=== PATIENT | female | born 1945 | race Caucasian/White ===

== ENCOUNTER 2018-06-23 12:56 | Observation (INO) ==
[2018-06-23] MEDS ORDERED: ASPIRIN 325 MG TABLET PO STA (13:54)
[2018-06-23] MEDS ORDERED: NITROGLYCERIN SL 0.4 MG TABLET SL PRN (13:54)
[2018-06-23 14:03] LABS: Basophils # 0.1 10*3/uL (0.0-0.2); Basophils % 0.8 % (0.0-0.8); Eosinophils # 0.2 10*3/uL (0.0-0.87); Eosinophils % 2.1 % (0.00-10.9); Hematocrit 39.6 VOL% (35.7-47.0); Immature Granulocytes % 0.3 %; Immature Granulocytes Absolute 0.03 #; Lymphocytes % 32.2 % (21.3-54.2); Mean Corpuscular HGB Conc 32.8 GM/DL (32-36); Mean Corpuscular Hemoglobin 29 PG (27-34); Mean Platelet Volume 10.9 FL (9.6-12.0); Monocytes # 0.7 10*3/uL (0.11-0.8); Neutrophils # 5.3 10*3/uL (1.4-7.4); Neutrophils % 57.6 % (38.7-73.9); Platelet Count 295 T/CUMM (130-400); Red Blood Count 4.55 MC/CUMM (3.8-5.5); Red Cell Distribution Width 13.4 % (9.3-17.3); White Blood Count 9.2 T/CUMM (4-12)
[2018-06-23 14:20] LABS: Alanine Aminotransferase 35 U/L (13-56); Albumin 3.3 G/DL (3.4-5.0); Alkaline Phosphatase 81 U/L (45-117); Aspartate Amino Transferase 29 U/L (0-37); Bilirubin,Total < 0.39 MG/DL (0.2-1.0); Blood Urea Nitrogen 22 MG/DL (7-18); Calcium 9.3 MG/DL (8.5-10.1); Glucose 154 MG/DL (74-106); Osmolality,Calculated 284.4 MOS/KG (273-304); Potassium 4.3 MMOL/L (3.5-5.1); Sodium 140 MMOL/L (136-145); Total Protein 6.3 G/DL (6.4-8.3)
[2018-06-23 14:59] LABS: INR 0.9; PT Patient Result 9.8 SECS; Partial Thromboplastin Time 24.8 SECS (0-40)
[2018-06-23] MEDS ORDERED: SODIUM CHLORIDE 0.9% 1,000 ML IV STA (15:23)
[2018-06-23] MEDS ORDERED: ACETAMINOPHEN 500 MG TABLET PO STA (16:52)
[2018-06-23] MEDS ORDERED: ONDANSETRON 4 MG/2 ML VIAL IV PRN (17:51)
[2018-06-23] MEDS ORDERED: SODIUM CHLORIDE 0.9% 1,000 ML IV SCH (17:51)
[2018-06-23] MEDS ORDERED: ACETAMINOPHEN 325 MG TABLET PO PRN (17:51)
[2018-06-23] MEDS: CARVEDILOL 3.125 MG TABLET PO SCH (18:32)
[2018-06-23] MEDS ORDERED: traMADol 50 MG TABLET PO ONE (19:30)
[2018-06-23] MEDS ORDERED: DEXTROSE 50% 25 GM/50 ML VIAL IV PRN (21:15)
[2018-06-23] MEDS ORDERED: GLUCAGON 1 MG VIAL IM PRN (21:15)
[2018-06-23 21:24] LABS: Troponin I < 0.015 NG/ML (0.00-0.045)
[2018-06-23] MEDS ORDERED: cloNIDine 0.1 MG TABLET PO SCH (21:30)
[2018-06-23] MEDS ORDERED: MAGNESIUM SULF RIDER 2 GM in PREMIX 1 EACH IV ONE (21:30)
[2018-06-23] MEDS ORDERED: CARVEDILOL 3.125 MG TABLET PO SCH (21:30)
[2018-06-23] MEDS: INSULIN REGULAR 100 UNIT/ML SUBCUT SCH (21:53)
[2018-06-23] MEDS: CITALOPRAM 40 MG TABLET PO SCH (21:54)
[2018-06-23] MEDS: INSULIN GLARGINE 100 UNIT/ML SUBCUT SCH (21:54)
[2018-06-23] MEDS: POTASSIUM CHLORIDE 20 MEQ TABLET PO SCH (21:55)
[2018-06-23] MEDS: GABAPENTIN 600 MG TABLET PO SCH (21:55)
[2018-06-23] MEDS: KETOROLAC 15 MG/1 ML VIAL IV SCH (21:56)
[2018-06-23] MEDS: SODIUM CHLORIDE 0.45% 1,000 ML IV SCH (22:12)
[2018-06-24] MEDS: KETOROLAC 15 MG/1 ML VIAL IV SCH ×3 (05:00→21:07)
[2018-06-24 06:34] LABS: Basophils # 0.1 10*3/uL (0.0-0.2); Basophils % 0.9 % (0.0-0.8); Eosinophils # 0.3 10*3/uL (0.0-0.87); Eosinophils % 2.9 % (0.00-10.9); Hematocrit 36.8 VOL% (35.7-47.0); Immature Granulocytes % 0.5 %; Immature Granulocytes Absolute 0.04 #; Lymphocytes % 35.5 % (21.3-54.2); Mean Corpuscular HGB Conc 32.6 GM/DL (32-36); Mean Corpuscular Hemoglobin 28 PG (27-34); Mean Corpuscular Volume 86.2 FL (87-102); Mean Platelet Volume 10.8 FL (9.6-12.0); Monocytes # 0.7 10*3/uL (0.11-0.8); Monocytes % 8.3 % (1.7-12.7); Neutrophils # 4.4 10*3/uL (1.4-7.4); Neutrophils % 51.9 % (38.7-73.9); Platelet Count 260 T/CUMM (130-400); Red Blood Count 4.27 MC/CUMM (3.8-5.5); Red Cell Distribution Width 13.3 % (9.3-17.3); White Blood Count 8.5 T/CUMM (4-12)
[2018-06-24 07:02] LABS: Calcium 8.6 MG/DL (8.5-10.1); Osmolality,Calculated 282.4 MOS/KG (273-304); Potassium 4.1 MMOL/L (3.5-5.1)
[2018-06-24 07:06] LABS: Troponin I < 0.015 NG/ML (0.00-0.045)
[2018-06-24] MEDS: INSULIN REGULAR 100 UNIT/ML SUBCUT SCH ×4 (09:26→20:44)
[2018-06-24] MEDS: FUROSEMIDE 40 MG TABLET PO SCH (09:27)
[2018-06-24] MEDS: busPIRone 10 MG TABLET PO SCH (09:27)
[2018-06-24] MEDS: PANTOPRAZOLE 40 MG TABLET PO SCH (09:28)
[2018-06-24] MEDS: POTASSIUM CHLORIDE 20 MEQ TABLET PO SCH ×2 (09:28→20:44)
[2018-06-24] MEDS: GABAPENTIN 600 MG TABLET PO SCH ×3 (09:28→20:44)
[2018-06-24] MEDS: LOSARTAN 25 MG TABLET PO SCH (09:29)
[2018-06-24] MEDS: CARVEDILOL 3.125 MG TABLET PO SCH ×2 (09:29→16:37)
[2018-06-24] MEDS: INSULIN GLARGINE 100 UNIT/ML SUBCUT SCH ×2 (09:29→20:43)
[2018-06-24] MEDS: ASPIRIN EC 325 MG TABLET PO SCH (09:29)
[2018-06-24] MEDS: SODIUM CHLORIDE 0.45% 1,000 ML IV SCH (11:50)
[2018-06-24] MEDS: ALBUTEROL/IPRATROPIUM 3 ML NEB RESP TX SCH (19:09)
[2018-06-24] MEDS: cloNIDine 0.1 MG TABLET PO SCH (20:44)
[2018-06-24] MEDS: CITALOPRAM 40 MG TABLET PO SCH (20:44)
[2018-06-24] MEDS: rOPINIRole 0.25 MG TABLET PO SCH (20:44)
[2018-06-25] MEDS: ALBUTEROL/IPRATROPIUM 3 ML NEB RESP TX SCH ×4 (02:19→20:25)
[2018-06-25 05:34] LABS: Calcium 8.3 MG/DL (8.5-10.1); Osmolality,Calculated 288.3 MOS/KG (273-304); Potassium 4.3 MMOL/L (3.5-5.1)
[2018-06-25] MEDS: SODIUM CHLORIDE 0.45% 1,000 ML IV SCH ×3 (05:56→16:17)
[2018-06-25] MEDS: KETOROLAC 15 MG/1 ML VIAL IV SCH ×3 (06:02→21:32)
[2018-06-25] MEDS: INSULIN GLARGINE 100 UNIT/ML SUBCUT SCH ×2 (08:00→21:34)
[2018-06-25] MEDS: INSULIN REGULAR 100 UNIT/ML SUBCUT SCH ×4 (08:26→21:33)
[2018-06-25] MEDS: GABAPENTIN 600 MG TABLET PO SCH ×3 (09:00→21:31)
[2018-06-25] MEDS: LOSARTAN 25 MG TABLET PO SCH (09:25)
[2018-06-25] MEDS: CARVEDILOL 3.125 MG TABLET PO SCH ×2 (09:25→16:33)
[2018-06-25] MEDS: cloNIDine 0.1 MG TABLET PO SCH ×2 (09:25→21:32)
[2018-06-25] MEDS ORDERED: methylPREDNISolone ACETATE 80 MG/1 ML VIAL ONE (11:22)
[2018-06-25] MEDS ORDERED: DEXAMETHASONE 10 MG/1 ML VIAL ONE (11:22)
[2018-06-25] MEDS ORDERED: TRIAMCINOLONE ACETONIDE 40 MG/1 ML VIAL ONE (11:22)
[2018-06-25] MEDS ORDERED: PROPOFOL 200 MG/20 ML VIAL IV ONE (12:36)
[2018-06-25] MEDS ORDERED: MIDAZOLAM 2 MG/2 ML VIAL ONE (12:36)
[2018-06-25] MEDS ORDERED: fentaNYL 100 MCG/2 ML VIAL ONE (12:36)
[2018-06-25] MEDS: POTASSIUM CHLORIDE 20 MEQ TABLET PO SCH ×2 (14:14→21:32)
[2018-06-25] MEDS: FUROSEMIDE 40 MG TABLET PO SCH (14:14)
[2018-06-25] MEDS: PANTOPRAZOLE 40 MG TABLET PO SCH (14:15)
[2018-06-25] MEDS: ASPIRIN EC 325 MG TABLET PO SCH (14:15)
[2018-06-25] MEDS: busPIRone 10 MG TABLET PO SCH (14:15)
[2018-06-25] MEDS: rOPINIRole 0.25 MG TABLET PO SCH (21:31)
[2018-06-25] MEDS: CITALOPRAM 40 MG TABLET PO SCH (21:31)
[2018-06-25] MEDS ORDERED: FLUTICASONE 50 MCG NASAL SPRAY 16 GM BOTTLE BOTH NARES PRN (22:54)
[2018-06-25] MEDS ORDERED: INSULIN REGULAR 100 UNIT/ML SUBCUT ONE (23:45)
[2018-06-26] MEDS: ALBUTEROL/IPRATROPIUM 3 ML NEB RESP TX SCH ×2 (00:59→07:21)
[2018-06-26] MEDS: SODIUM CHLORIDE 0.45% 1,000 ML IV SCH (02:50)
[2018-06-26] MEDS: KETOROLAC 15 MG/1 ML VIAL IV SCH (05:25)
[2018-06-26 08:24] VITALS: BP 134/67
[2018-06-26] MEDS: GABAPENTIN 600 MG TABLET PO SCH (08:59)
[2018-06-26] MEDS: PANTOPRAZOLE 40 MG TABLET PO SCH (08:59)
[2018-06-26] MEDS: CARVEDILOL 3.125 MG TABLET PO SCH (08:59)
[2018-06-26] MEDS: FUROSEMIDE 40 MG TABLET PO SCH (08:59)
[2018-06-26] MEDS: LOSARTAN 25 MG TABLET PO SCH (08:59)
[2018-06-26] MEDS: POTASSIUM CHLORIDE 20 MEQ TABLET PO SCH (08:59)
[2018-06-26] MEDS: INSULIN GLARGINE 100 UNIT/ML SUBCUT SCH (09:00)
[2018-06-26] MEDS: ASPIRIN EC 325 MG TABLET PO SCH (09:00)
[2018-06-26] MEDS: cloNIDine 0.1 MG TABLET PO SCH (09:00)
[2018-06-26] MEDS: INSULIN REGULAR 100 UNIT/ML SUBCUT SCH (09:01)
[2018-06-26] MEDS: busPIRone 10 MG TABLET PO SCH (09:10)
== END 2018-06-26 11:39 | disposition home or self-care (01) ==
LOC: N.ED 12:56 → N.EDINP 12:56 → N.TELEN 17:45
PROVIDERS: ADMIT Internal Medicine; ATTEND Internal Medicine

== ENCOUNTER 2019-12-08 14:30 | Observation (INO) ==
[2019-12-08 15:54] LABS: Apearance,Urine CLEAR (Clear); Bilirubin,Urine Negative (Negative); Blood, Urine Small mg/dL (Negative); Glucose,Urine (UA) >=500 mg/dL (Negative); Ketones,Urine 5 mg/dL (Negative); Nitrite,Urine Negative (Negative); Protein,Urine Negative; RBC,Urine 4 /HPF (0-4); Squamous Epithelial Cell,Urine Occasional /HPF (0-10); Urine Color Yellow (Yellow); Urine Specific Gravity 1.016 (1.001-1.035); Urine Urobilinogen < 2.0 EU/DL (0.2-1.0); WBC,Urine <1 /HPF (0-6)
[2019-12-08 15:58] LABS: Basophils # 0.1 10*3/uL (0.0-0.2); Basophils % 0.4 % (0.0-0.8); Eosinophils # 0.1 10*3/uL (0.0-0.87); Eosinophils % 0.6 % (0.00-10.9); Hematocrit 41.3 VOL% (35.7-47.0); Immature Granulocytes % 0.3 %; Immature Granulocytes Absolute 0.04 #; Lymphocytes # 2.1 10*3/uL (1.4-4.0); Lymphocytes % 17.9 % (21.3-54.2); Mean Corpuscular HGB Conc 31.5 GM/DL (32-36); Mean Corpuscular Volume 88.1 FL (87-102); Mean Platelet Volume 10.7 FL (9.6-12.0); Monocytes % 7.2 % (1.7-12.7); Neutrophils % 73.6 % (38.7-73.9); Platelet Count 284 T/CUMM (130-400); Red Blood Count 4.69 MC/CUMM (3.8-5.5); Red Cell Distribution Width 13.3 % (9.3-17.3); White Blood Count 11.7 T/CUMM (4-12)
[2019-12-08 16:10] LABS: PT Patient Result 10.4 SECS (9.8-11.9)
[2019-12-08 16:17] LABS: Barbiturates Screen,Urine Negative (Negative); Benzodiazepines Screen,Urine Negative (Negative); Cannabinoid Screen,Urine Negative (Negative); Opiate Screen,Urine Negative (Negative); Phencyclidine Screen,Urine Negative (Negative)
[2019-12-08 16:37] LABS: Albumin 3.1 G/DL (3.4-5.0); Bilirubin,Total 0.5 MG/DL (0.2-1.0); Calcium 9.2 MG/DL (8.5-10.1); Osmolality,Calculated 286.1 MOS/KG (273-304); Thyroid Stimulating Hormone 1.57 uIU/ml (0.358-3.74); Total Protein 7.1 G/DL (6.4-8.3)
[2019-12-08] MEDS ORDERED: cloNIDine 0.1 MG TABLET PO ONE (18:55)
[2019-12-08] MEDS ORDERED: hydrALAZINE 20 MG/1 ML VIAL IV PRN (18:55)
[2019-12-08] MEDS ORDERED: cloNIDine 0.1 MG TABLET ONE (18:57)
[2019-12-08] MEDS ORDERED: ONDANSETRON 4 MG/2 ML VIAL IV PRN (19:38)
[2019-12-08] MEDS ORDERED: GLUCAGON 1 MG VIAL IM PRN (19:38)
[2019-12-08] MEDS ORDERED: ACETAMINOPHEN 325 MG TABLET PO PRN (19:38)
[2019-12-08] MEDS ORDERED: DEXTROSE 50% 25 GM/50 ML SYRINGE IV PRN (19:38)
[2019-12-08] MEDS: SODIUM CHLORIDE 0.9% 1,000 ML IV SCH (21:53)
[2019-12-08] MEDS: DOCUSATE SODIUM 100 MG CAPSULE PO SCH (21:55)
[2019-12-09] MEDS: INSULIN REGULAR 100 UNIT/ML SUBCUT SCH ×3 (01:05→12:47)
[2019-12-09] MEDS: SODIUM CHLORIDE 0.9% 1,000 ML IV SCH (06:00)
[2019-12-09] MEDS ORDERED: POLYETHYLENE GLYCOL POWDER 17 GM PACK PO PRN (08:11)
[2019-12-09] MEDS ORDERED: ALBUTEROL 2.5 MG/3 ML NEB RESP TX PRN (08:11)
[2019-12-09] MEDS ORDERED: ALPRAZolam 0.5 MG TABLET PO ONE (08:19)
[2019-12-09] MEDS ORDERED: ERGOCALCIFEROL 50,000 UNIT CAPSULE PO SCH (08:30)
[2019-12-09] MEDS ORDERED: FUROSEMIDE 20 MG/2 ML VIAL IV ONE (08:43)
[2019-12-09] MEDS ORDERED: LORazepam 2 MG/1 ML VIAL IV ONE ×2 (08:50→16:30)
[2019-12-09] MEDS ORDERED: PANTOPRAZOLE 40 MG TABLET PO SCH (09:00)
[2019-12-09] MEDS ORDERED: busPIRone 5 MG TABLET PO SCH (09:00)
[2019-12-09] MEDS ORDERED: GABAPENTIN 400 MG CAPSULE PO SCH (09:00)
[2019-12-09] MEDS ORDERED: FUROSEMIDE 40 MG TABLET PO SCH ×2 (09:00→09:07)
[2019-12-09] MEDS: busPIRone 5 MG TABLET PO SCH ×3 (09:40→21:46)
[2019-12-09] MEDS: FLUTICASONE 50 MCG NASAL SPRAY 16 GM BOTTLE BOTH NARES SCH (09:41)
[2019-12-09] MEDS: CITALOPRAM 40 MG TABLET PO SCH (09:41)
[2019-12-09] MEDS: BENZONATATE 100 MG CAPSULE PO PRN ×2 (09:41→21:44)
[2019-12-09] MEDS: MONTELUKAST 10 MG TABLET PO SCH (09:41)
[2019-12-09] MEDS: DOCUSATE SODIUM 100 MG CAPSULE PO SCH ×2 (09:42→21:46)
[2019-12-09] MEDS: carvediloL 12.5 MG TABLET PO SCH ×2 (09:42→21:46)
[2019-12-09] MEDS: PANTOPRAZOLE 40 MG TABLET PO SCH (09:43)
[2019-12-09] MEDS: LOSARTAN 25 MG TABLET PO SCH (09:47)
[2019-12-09] MEDS: INSULIN GLARGINE 100 UNIT/ML SUBCUT SCH (09:50)
[2019-12-09] MEDS: INSULIN LISPRO 100 UNIT/ML SUBCUT SCH ×3 (12:16→21:43)
[2019-12-09] MEDS: FUROSEMIDE 20 MG TABLET PO SCH (12:47)
[2019-12-09] MEDS: ENOXAPARIN 40 MG/0.4 ML SYRINGE SUBCUT SCH (12:47)
[2019-12-09] MEDS: MIRTAZAPINE 15 MG TABLET PO SCH (21:44)
[2019-12-09] MEDS: GABAPENTIN 300 MG CAPSULE PO SCH (21:44)
[2019-12-10] MEDS: MONTELUKAST 10 MG TABLET PO SCH (08:17)
[2019-12-10] MEDS: CITALOPRAM 40 MG TABLET PO SCH (08:17)
[2019-12-10] MEDS: DOCUSATE SODIUM 100 MG CAPSULE PO SCH ×2 (08:17→22:56)
[2019-12-10] MEDS: busPIRone 5 MG TABLET PO SCH ×3 (08:17→22:55)
[2019-12-10] MEDS: PANTOPRAZOLE 40 MG TABLET PO SCH (08:17)
[2019-12-10] MEDS: carvediloL 12.5 MG TABLET PO SCH ×2 (08:18→22:56)
[2019-12-10] MEDS: FUROSEMIDE 20 MG TABLET PO SCH (08:18)
[2019-12-10] MEDS: INSULIN LISPRO 100 UNIT/ML SUBCUT SCH ×4 (08:18→22:55)
[2019-12-10] MEDS: GABAPENTIN 300 MG CAPSULE PO SCH ×2 (08:18→22:56)
[2019-12-10] MEDS: LOSARTAN 25 MG TABLET PO SCH (08:18)
[2019-12-10] MEDS: INSULIN GLARGINE 100 UNIT/ML SUBCUT SCH (08:19)
[2019-12-10] MEDS: FLUTICASONE 50 MCG NASAL SPRAY 16 GM BOTTLE BOTH NARES SCH (08:20)
[2019-12-10] MEDS: ENOXAPARIN 40 MG/0.4 ML SYRINGE SUBCUT SCH (10:21)
[2019-12-10] MEDS: BENZONATATE 100 MG CAPSULE PO PRN (22:56)
[2019-12-10] MEDS: MIRTAZAPINE 15 MG TABLET PO SCH (22:56)
[2019-12-11] MEDS: INSULIN LISPRO 100 UNIT/ML SUBCUT SCH ×2 (09:46→12:12)
[2019-12-11] MEDS: PANTOPRAZOLE 40 MG TABLET PO SCH (09:47)
[2019-12-11] MEDS: DOCUSATE SODIUM 100 MG CAPSULE PO SCH (09:47)
[2019-12-11] MEDS: CITALOPRAM 40 MG TABLET PO SCH (09:47)
[2019-12-11] MEDS: GABAPENTIN 300 MG CAPSULE PO SCH (09:47)
[2019-12-11] MEDS: carvediloL 12.5 MG TABLET PO SCH (09:47)
[2019-12-11] MEDS: MONTELUKAST 10 MG TABLET PO SCH (09:48)
[2019-12-11] MEDS: busPIRone 5 MG TABLET PO SCH (09:48)
[2019-12-11] MEDS: FUROSEMIDE 20 MG TABLET PO SCH (09:48)
[2019-12-11] MEDS: LOSARTAN 25 MG TABLET PO SCH (09:48)
[2019-12-11] MEDS: FLUTICASONE 50 MCG NASAL SPRAY 16 GM BOTTLE BOTH NARES SCH (09:49)
[2019-12-11] MEDS: INSULIN GLARGINE 100 UNIT/ML SUBCUT SCH (09:59)
[2019-12-11] MEDS: ENOXAPARIN 40 MG/0.4 ML SYRINGE SUBCUT SCH (10:00)
[2019-12-11 12:50] VITALS: BP 126/47
== END 2019-12-11 13:38 | disposition home health service (06) ==
LOC: EDBD → EDUNIT# → N.ED 14:30 → N.EDINP 14:30 → N.3E 18:45
PROVIDERS: ADMIT Internal Medicine; ATTEND Internal Medicine

== ENCOUNTER 2022-09-05 21:23 | Inpatient (IN) ==
[2022-09-05 22:11] LABS: Basophils # 0.1 10*3/uL (0.0-0.2); Basophils % 0.7 % (0.0-0.8); Eosinophils # 0.5 10*3/uL (0.0-0.87); Eosinophils % 3.5 % (0.00-10.9); Hematocrit 38.2 VOL% (35.7-47.0); Hemoglobin 12.1 GM/DL (12.0-16.0); Immature Granulocytes % 0.3 %; Immature Granulocytes Absolute 0.04 #; Lymphocytes # 3.3 10*3/uL (1.4-4.0); Lymphocytes % 24.8 % (21.3-54.2); Mean Corpuscular HGB Conc 31.7 GM/DL (32-36); Mean Corpuscular Volume 85.8 FL (87-102); Mean Platelet Volume 10.2 FL (9.6-12.0); Monocytes # 0.7 10*3/uL (0.11-0.8); Monocytes % 5.1 % (1.7-12.7); Neutrophils % 65.6 % (38.7-73.9); Platelet Count 326 T/CUMM (130-400); Red Blood Count 4.45 MC/CUMM (3.8-5.5); Red Cell Distribution Width 13.5 % (9.3-17.3); White Blood Count 13.3 T/CUMM (4-12)
[2022-09-05 22:22] LABS: INR 0.9; PT Patient Result 10.2 SECS (10.1-12.1)
[2022-09-05 22:44] LABS: Alanine Aminotransferase 20 U/L (13-56); Albumin 3.3 G/DL (3.4-5.0); Alkaline Phosphatase 87 U/L (45-117); Aspartate Amino Transferase 17 U/L (0-37); Bilirubin,Total < 0.39 MG/DL (0.20-1.00); Blood Urea Nitrogen 21 MG/DL (7-18); Calcium 9.2 MG/DL (8.5-10.1); Carbon Dioxide 29 MMOL/L (21-32); Chloride 108 MMOL/L (98-107); Glucose 185 MG/DL (74-106); Potassium 4.4 MMOL/L (3.5-5.1); Sodium 143 MMOL/L (136-145); Total Protein 6.3 G/DL (6.4-8.2)
[2022-09-05] MEDS ORDERED: ASPIRIN 325 MG TABLET PO STA (22:58)
[2022-09-06] MEDS ORDERED: hydrALAZINE 20 MG/1 ML VIAL IV STA ×2 (01:01→01:13)
[2022-09-06] MEDS ORDERED: ONDANSETRON 4 MG/2 ML VIAL IV PRN (01:17)
[2022-09-06 01:31] LABS: Mucus,Urine Occasional /LPF (Occasional); RBC,Urine 2 /HPF (0-4); Squamous Epithelial Cell,Urine Occasional /HPF (0-10)
[2022-09-06 01:32] LABS: Bilirubin,Urine Negative (Negative); Blood, Urine Trace mg/dL (Negative); Glucose,Urine (UA) 500 mg/dL (Negative); Ketones,Urine Negative (Negative); Nitrite,Urine Negative (Negative); Protein,Urine Negative (Negative); Urine Appearance Clear (Clear); Urine Color Yellow (Yellow); Urine Urobilinogen 0.2 eU/dL (<2.0); Urine pH 6.5 (4.5-8.0)
[2022-09-06 02:31] LABS: Alanine Aminotransferase 17 U/L (13-56); Albumin 3.1 G/DL (3.4-5.0); Alkaline Phosphatase 83 U/L (45-117); Aspartate Amino Transferase 17 U/L (0-37); Bilirubin,Total < 0.39 MG/DL (0.20-1.00); Blood Urea Nitrogen 18 MG/DL (7-18); Calcium 8.6 MG/DL (8.5-10.1); Carbon Dioxide 30 MMOL/L (21-32); Chloride 109 MMOL/L (98-107); Glucose 172 MG/DL (74-106); Osmolality,Calculated 286.3 MOS/KG (273-304); Potassium 4.7 MMOL/L (3.5-5.1); Sodium 141 MMOL/L (136-145); Total Protein 6.3 G/DL (6.4-8.2)
[2022-09-06] MEDS: ACETAMINOPHEN 325 MG TABLET PO PRN ×2 (02:40→11:15)
[2022-09-06] MEDS ORDERED: hydrALAZINE 20 MG/1 ML VIAL IV ONE (02:42)
[2022-09-06 05:17] LABS: Basophils # 0.1 10*3/uL (0.0-0.2); Basophils % 0.7 % (0.0-0.8); Eosinophils # 0.6 10*3/uL (0.0-0.87); Hematocrit 37.1 VOL% (35.7-47.0); Immature Granulocytes % 0.4 %; Immature Granulocytes Absolute 0.06 #; Lymphocytes # 3.4 10*3/uL (1.4-4.0); Lymphocytes % 24.9 % (21.3-54.2); Mean Corpuscular HGB Conc 32.3 GM/DL (32-36); Mean Corpuscular Volume 84.1 FL (87-102); Mean Platelet Volume 10.5 FL (9.6-12.0); Monocytes # 0.9 10*3/uL (0.11-0.8); Monocytes % 6.2 % (1.7-12.7); Neutrophils % 63.8 % (38.7-73.9); Platelet Count 328 T/CUMM (130-400); Red Blood Count 4.41 MC/CUMM (3.8-5.5); Red Cell Distribution Width 13.6 % (9.3-17.3); White Blood Count 13.7 T/CUMM (4-12)
[2022-09-06] MEDS: DOCUSATE SODIUM 100 MG CAPSULE PO SCH ×2 (08:37→20:35)
[2022-09-06] MEDS: PANTOPRAZOLE 40 MG TABLET PO SCH (08:37)
[2022-09-06] MEDS ORDERED: ENOXAPARIN 40 MG/0.4 ML SYRINGE SUBCUT SCH (09:00)
[2022-09-06] MEDS ORDERED: FUROSEMIDE 40 MG TABLET PO PRN (09:21)
[2022-09-06 09:50] LABS: Risk Ratio 1.94; VLDL Cholesterol 25.8 MG/DL
[2022-09-06] MEDS ORDERED: DEXTROSE 10% 250 ML BAG IV PRN (09:51)
[2022-09-06] MEDS ORDERED: GLUCAGON 1 MG VIAL IM PRN (09:51)
[2022-09-06] MEDS ORDERED: ALBUTEROL 2.5 MG/3 ML NEB RESP TX PRN (10:20)
[2022-09-06] MEDS: ASPIRIN 325 MG TABLET PO SCH (11:17)
[2022-09-06] MEDS: INSULIN LISPRO 100 UNIT/ML SUBCUT SCH ×3 (12:57→20:36)
[2022-09-06] MEDS: HEPARIN DRIP 25,000 UNITS/500 ML PREMIX IV SCH (13:26)
[2022-09-06] MEDS: methylPREDNISolone SOD SUC INJ 1,000 MG in SODIUM CHLORIDE 0.9% 100 ML IV SCH (15:30)
[2022-09-06] MEDS: GABAPENTIN 600 MG TABLET PO SCH ×2 (15:43→20:36)
[2022-09-06] MEDS: carvediloL 25 MG TABLET PO SCH (16:42)
[2022-09-06] MEDS: DULoxetine 30 MG CAPSULE PO SCH (20:35)
[2022-09-06] MEDS: LOSARTAN 50 MG TABLET PO SCH (20:35)
[2022-09-06] MEDS: AMOXICILLIN/CLAV 875 MG TABLET PO SCH (20:35)
[2022-09-06] MEDS: busPIRone 15 MG TABLET PO SCH (20:35)
[2022-09-06] MEDS: MIRTAZAPINE 30 MG TABLET PO SCH (20:36)
[2022-09-06] MEDS: CYCLOBENZAPRINE 10 MG TABLET PO PRN (20:39)
[2022-09-07 05:39] LABS: Basophils % 0.2 % (0.0-0.8); Hematocrit 41.4 VOL% (35.7-47.0); Hemoglobin 13.6 GM/DL (12.0-16.0); Immature Granulocytes % 0.7 %; Lymphocytes # 1.7 10*3/uL (1.4-4.0); Lymphocytes % 12.2 % (21.3-54.2); Mean Corpuscular HGB Conc 32.9 GM/DL (32-36); Mean Corpuscular Volume 82.1 FL (87-102); Mean Platelet Volume 10.5 FL (9.6-12.0); Monocytes # 0.1 10*3/uL (0.11-0.8); Monocytes % 0.4 % (1.7-12.7); Neutrophils % 86.5 % (38.7-73.9); Platelet Count 338 T/CUMM (130-400); Red Blood Count 5.04 MC/CUMM (3.8-5.5); Red Cell Distribution Width 13.4 % (9.3-17.3); White Blood Count 14.3 T/CUMM (4-12)
[2022-09-07 06:06] LABS: Calcium 9.5 MG/DL (8.5-10.1); Osmolality,Calculated 290.4 MOS/KG (273-304)
[2022-09-07] MEDS: INSULIN LISPRO 100 UNIT/ML SUBCUT SCH ×4 (08:10→21:17)
[2022-09-07] MEDS: HEPARIN DRIP 25,000 UNITS/500 ML PREMIX IV SCH ×2 (08:17→10:42)
[2022-09-07] MEDS: carvediloL 25 MG TABLET PO SCH ×3 (08:17→16:06)
[2022-09-07] MEDS: CHOLECALCIFEROL 1,000 UNIT TABLET PO SCH (08:17)
[2022-09-07] MEDS: busPIRone 15 MG TABLET PO SCH ×2 (08:18→21:16)
[2022-09-07] MEDS: DOCUSATE SODIUM 100 MG CAPSULE PO SCH ×2 (08:18→21:16)
[2022-09-07] MEDS: PANTOPRAZOLE 40 MG TABLET PO SCH (08:18)
[2022-09-07] MEDS: GABAPENTIN 600 MG TABLET PO SCH ×3 (08:18→21:16)
[2022-09-07] MEDS: ASPIRIN 325 MG TABLET PO SCH (08:18)
[2022-09-07] MEDS: LOSARTAN 50 MG TABLET PO SCH ×2 (08:18→21:16)
[2022-09-07] MEDS: DULoxetine 30 MG CAPSULE PO SCH ×2 (08:18→21:16)
[2022-09-07] MEDS: traMADol 50 MG TABLET PO PRN ×2 (08:19→08:34)
[2022-09-07] MEDS: TRAMADOL 100 MG PO SCH (08:21)
[2022-09-07] MEDS: methylPREDNISolone SOD SUC INJ 1,000 MG in SODIUM CHLORIDE 0.9% 100 ML IV SCH ×2 (08:24→14:01)
[2022-09-07] MEDS: AMOXICILLIN/CLAV 875 MG TABLET PO SCH ×2 (08:25→21:16)
[2022-09-07] MEDS ORDERED: PANTOPRAZOLE 40 MG TABLET PO SCH (09:00)
[2022-09-07] MEDS ORDERED: INSULIN GLARGINE 100 UNIT/ML SUBCUT SCH (09:00)
[2022-09-07] MEDS: FUROSEMIDE 40 MG TABLET PO SCH (10:43)
[2022-09-07] MEDS: MIRTAZAPINE 30 MG TABLET PO SCH (21:16)
[2022-09-07] MEDS: CYCLOBENZAPRINE 10 MG TABLET PO PRN (21:16)
[2022-09-08 05:32] LABS: Basophils % 0.1 % (0.0-0.8); Hematocrit 35.6 VOL% (35.7-47.0); Hemoglobin 11.8 GM/DL (12.0-16.0); Immature Granulocytes % 0.9 %; Lymphocytes # 1.6 10*3/uL (1.4-4.0); Lymphocytes % 7.2 % (21.3-54.2); Mean Corpuscular HGB Conc 33.1 GM/DL (32-36); Mean Corpuscular Volume 83.4 FL (87-102); Mean Platelet Volume 11.1 FL (9.6-12.0); Monocytes # 0.5 10*3/uL (0.11-0.8); Neutrophils % 89.8 % (38.7-73.9); Platelet Count 304 T/CUMM (130-400); Red Blood Count 4.27 MC/CUMM (3.8-5.5); Red Cell Distribution Width 13.9 % (9.3-17.3); White Blood Count 22.7 T/CUMM (4-12)
[2022-09-08 05:57] LABS: Band Neutrophils 1 % (0-10); Lymphocytes 8 % (20-55); Total Cells Counted 100
[2022-09-08 05:58] LABS: Microcytosis 1+; Ovalocytes Slight; Platelet Estimate Normal
[2022-09-08 05:59] LABS: Calcium 8.9 MG/DL (8.5-10.1); Osmolality,Calculated 299.5 MOS/KG (273-304); Potassium 3.8 MMOL/L (3.5-5.1)
[2022-09-08] MEDS: carvediloL 25 MG TABLET PO SCH ×2 (09:04→17:45)
[2022-09-08] MEDS: busPIRone 15 MG TABLET PO SCH ×2 (09:04→21:11)
[2022-09-08] MEDS: traMADol 50 MG TABLET PO PRN (09:04)
[2022-09-08] MEDS: DULoxetine 30 MG CAPSULE PO SCH ×2 (09:04→21:11)
[2022-09-08] MEDS: GABAPENTIN 600 MG TABLET PO SCH ×3 (09:05→21:11)
[2022-09-08] MEDS: DOCUSATE SODIUM 100 MG CAPSULE PO SCH ×2 (09:05→21:12)
[2022-09-08] MEDS: FUROSEMIDE 40 MG TABLET PO SCH (09:05)
[2022-09-08] MEDS: PANTOPRAZOLE 40 MG TABLET PO SCH (09:06)
[2022-09-08] MEDS: LOSARTAN 50 MG TABLET PO SCH ×2 (09:06→21:12)
[2022-09-08] MEDS: CHOLECALCIFEROL 1,000 UNIT TABLET PO SCH (09:07)
[2022-09-08] MEDS: INSULIN LISPRO 100 UNIT/ML SUBCUT SCH ×4 (09:07→21:12)
[2022-09-08] MEDS: TRAMADOL 100 MG PO SCH (09:08)
[2022-09-08] MEDS: INSULIN GLARGINE 100 UNIT/ML SUBCUT SCH (12:25)
[2022-09-08] MEDS: methylPREDNISolone SOD SUC INJ 1,000 MG in SODIUM CHLORIDE 0.9% 100 ML IV SCH (12:25)
[2022-09-08 13:05] LABS: Hepatitis B Surface Ag Result Non-Reactive (NonReactive)
[2022-09-08 13:34] LABS: Hepatitis C Virus Ab Quant < 0.02 Index; Hepatitis C Virus Ab Result Non-Reactive (NonReactive)
[2022-09-08] MEDS: MIRTAZAPINE 30 MG TABLET PO SCH (21:12)
[2022-09-08] MEDS ORDERED: tiZANidine 4 MG TABLET PO PRN (21:23)
[2022-09-09 05:09] LABS: Hematocrit 37.5 VOL% (35.7-47.0); Immature Granulocytes % 1.3 %; Immature Granulocytes Absolute 0.27 #; Lymphocytes # 1.4 10*3/uL (1.4-4.0); Lymphocytes % 6.8 % (21.3-54.2); Mean Corpuscular Volume 84.8 FL (87-102); Mean Platelet Volume 10.8 FL (9.6-12.0); Monocytes # 0.4 10*3/uL (0.11-0.8); Neutrophils % 89.9 % (38.7-73.9); Platelet Count 307 T/CUMM (130-400); Red Blood Count 4.42 MC/CUMM (3.8-5.5); White Blood Count 20.7 T/CUMM (4-12)
[2022-09-09 05:26] LABS: Osmolality,Calculated 299.1 MOS/KG (273-304); Potassium 3.4 MMOL/L (3.5-5.1)
[2022-09-09 06:15] LABS: Anisocytosis 1+; Band Neutrophils 1 % (0-10); Lymphocytes 9 % (20-55); Platelet Estimate Normal; Total Cells Counted 100
[2022-09-09 08:04] VITALS: BP 121/77
[2022-09-09] MEDS: carvediloL 25 MG TABLET PO SCH (08:15)
[2022-09-09] MEDS: INSULIN LISPRO 100 UNIT/ML SUBCUT SCH ×2 (08:15→12:33)
[2022-09-09] MEDS ORDERED: predniSONE 10 MG TABLET PO SCH (09:00)
[2022-09-09] MEDS ORDERED: ASPIRIN EC 81 MG TABLET PO SCH (09:00)
[2022-09-09] MEDS ORDERED: FOLIC ACID 1 MG TABLET PO SCH (09:00)
[2022-09-09] MEDS: PANTOPRAZOLE 40 MG TABLET PO SCH (10:21)
[2022-09-09] MEDS: DULoxetine 30 MG CAPSULE PO SCH (10:21)
[2022-09-09] MEDS: GABAPENTIN 600 MG TABLET PO SCH (10:21)
[2022-09-09] MEDS: busPIRone 15 MG TABLET PO SCH (10:21)
[2022-09-09] MEDS: traMADol 50 MG TABLET PO PRN (10:21)
[2022-09-09] MEDS: LOSARTAN 50 MG TABLET PO SCH (10:21)
[2022-09-09] MEDS: FUROSEMIDE 40 MG TABLET PO SCH (10:22)
[2022-09-09] MEDS: CHOLECALCIFEROL 1,000 UNIT TABLET PO SCH (10:22)
[2022-09-09] MEDS: DOCUSATE SODIUM 100 MG CAPSULE PO SCH (10:22)
[2022-09-09] MEDS: INSULIN GLARGINE 100 UNIT/ML SUBCUT SCH (10:23)
[2022-09-09] MEDS: TRAMADOL 100 MG PO SCH (10:23)
[2022-09-09] MEDS ORDERED: APIXABAN 5 MG TABLET PO SCH (11:00)
[2022-09-13] MEDS ORDERED: SEMAGLUTIDE SUBCUT SCH (09:00)
[2022-09-15] MEDS ORDERED: METHOTREXATE 2.5 MG TABLET PO SCH (09:00)
== END 2022-09-09 11:44 | disposition home or self-care (01) | DRG 123 ==
LOC: N.ED 21:23 → N.2E 21:23
PROVIDERS: ADMIT Internal Medicine; ATTEND Internal Medicine